=== PATIENT | male | born 1955 | race African-American/Black ===

== ENCOUNTER 2020-07-25 07:25 | Emergency (ER) | payer OTHER ==
[~2020-07-25] VITALS: Ht 182.9 cm; Wt 87.0 kg
[~2020-07-25 07:25] MED LIST: TAMS-11 PO
[2020-07-25] MEDS ORDERED: KETOROLAC 60MG/2ML VIAL IM ONE (08:00)
[2020-07-25] MEDS ORDERED: ACETAMINOPHEN WITH CODEINE 300/30MG TABLET PO ONE (08:00)
[2020-07-25] MEDS ORDERED: T3 PO ×3 (09:08→09:35)
[2020-07-25 09:34] VITALS: BP 142/59
== END 2020-07-25 09:34 | disposition home or self-care (01) ==
LOC: ER 07:25
DX: M54.30 Sciatica, unspecified side (principal); N40.0 Benign prostatic hyperplasia without lower urinary tract symptoms
CPT/HCPCS: 96372; 99283; J1885

== ENCOUNTER 2024-07-22 08:58 | Emergency (ER) | payer MEDICARE, OTHER ==
[~2024-07-22] VITALS: Ht 182.9 cm; Wt 91.0 kg
[~2024-07-22 08:58] MED LIST changes: +T3 PO; -TAMS-11 PO; +TAMS-54 PO
[2024-07-22 09:03] VITALS: O2SAT 100
[2024-07-22 09:04] VITALS: BP 128/60; PULSE 50; RESP 14; TEMP 36.8; O2SAT 100
== END 2024-07-22 10:14 | disposition home or self-care (01) ==
LOC: ER 08:58
DX: S60.455A Superficial foreign body of left ring finger, initial encounter (principal); N40.0 Benign prostatic hyperplasia without lower urinary tract symptoms; X58.XXXA Exposure to other specified factors, initial encounter; Y93.89 Activity, other specified; Y92.89 Other specified places as the place of occurrence of the external cause; Y99.8 Other external cause status
CPT/HCPCS: 99282